=== PATIENT | male | born 2000 | race Caucasian/White ===

== ENCOUNTER 2024-06-14 13:08 | Day surgery (SDC) | payer BC, SELFPAY ==
[2024-06-14] VITALS (7 sets, daily range): BP systolic 90–117; BP diastolic 48–80; BMI 19.9
[2024-06-14 13:25] LABS: Glucose - Point of Care 244 mg/dl (70-99)
[2024-06-14] MEDS: NORMOSOL-R/PLASMALYTE-A 1000 IV (13:39)
[2024-06-14] MEDS: CELEBREX 200 MG PO (13:42)
[2024-06-14] MEDS: TYLENOL 1000 MG PO (13:42)
[2024-06-14 14:57] LABS: Glucose - Point of Care 186 mg/dl (70-99)
[2024-06-14 17:57] LABS: Glucose - Point of Care 261 mg/dl (70-99)
[2024-06-14] MEDS: NOVOLOG vial 2 UNITS SC (18:22)
[2024-06-14] MEDS: ROXICODONE 5 MG PO (19:02)
== END 2024-06-14 19:35 | disposition home or self-care (01) ==
LOC: SDS 13:08
PROVIDERS: ATTENDING PHYSICIAN Orthopaedic Surgery
DX: S42.201A Unspecified fracture of upper end of right humerus, initial encounter for closed fracture (principal); M25.311 Other instability, right shoulder; W10.9XXA Fall (on) (from) unspecified stairs and steps, initial encounter
CPT/HCPCS: 23630; 73030; 76000; 82962; C1713

== ENCOUNTER 2024-09-03 09:57 | Outpatient (RCR) | payer BC, SELFPAY | END 2024-09-03 23:59 | disposition home or self-care (01) | LOC: RPT 09:57 | PROVIDERS: ATTENDING PHYSICIAN Orthopaedic Surgery | DX: S42.251D Displaced fracture of greater tuberosity of right humerus, subsequent encounter for fracture with routine healing (principal); Z73.6 Limitation of activities due to disability | CPT/HCPCS: 97010; 97110; 97140; 97162 ==

== ENCOUNTER 2024-10-03 14:54 | Outpatient (RCR) | payer BC, SELFPAY | END 2024-10-03 23:59 | disposition home or self-care (01) | LOC: RPT 14:54 | PROVIDERS: ATTENDING PHYSICIAN Orthopaedic Surgery | DX: S42.251D Displaced fracture of greater tuberosity of right humerus, subsequent encounter for fracture with routine healing (principal); Z47.89 Encounter for other orthopedic aftercare (principal); X58.XXXD Exposure to other specified factors, subsequent encounter; Z73.6 Limitation of activities due to disability; M62.81 Muscle weakness (generalized) | CPT/HCPCS: 97010; 97110; 97140 ==

== ENCOUNTER 2024-10-30 09:54 | Outpatient (RCR) | payer BC, SELFPAY | END 2024-10-30 23:59 | disposition home or self-care (01) | LOC: RPT 09:54 | PROVIDERS: ATTENDING PHYSICIAN Orthopaedic Surgery | DX: Z47.89 Encounter for other orthopedic aftercare (principal); S42.251D Displaced fracture of greater tuberosity of right humerus, subsequent encounter for fracture with routine healing (principal); X58.XXXD Exposure to other specified factors, subsequent encounter; Z73.6 Limitation of activities due to disability; M62.81 Muscle weakness (generalized) | CPT/HCPCS: 97010; 97110; 97112; 97140 ==

== ENCOUNTER 2024-11-30 14:09 | Outpatient (RCR) | payer BC, SELFPAY | END 2024-11-30 23:59 | disposition home or self-care (01) | LOC: RPT 14:09 | PROVIDERS: ATTENDING PHYSICIAN Orthopaedic Surgery | DX: Z47.89 Encounter for other orthopedic aftercare (principal); S42.251D Displaced fracture of greater tuberosity of right humerus, subsequent encounter for fracture with routine healing; X58.XXXD Exposure to other specified factors, subsequent encounter; Z73.6 Limitation of activities due to disability; M62.81 Muscle weakness (generalized) | CPT/HCPCS: 97110; 97140 ==